=== PATIENT | male | born 1955 ===

== ENCOUNTER → 2017-02-25 | Outpatient (CLI) | payer OTHER ==
--- NOTE | 2017-02-25 12:49 | Diagnostic Imaging Report ---
Indication: Palpable wall thyroid nodules Technique: Grayscale and duplex images of the thyroid Comparison: None Findings: Right thyroid lobe measures 6.6 cm length x 2.5 cm AP. Left thyroid lobe measures 7.7 cm length x 2.9 cm AP. Both thyroid lobes demonstrate heterogeneity and multiple nodules. The largest nodule in the right lobe is located posteriorly and superiorly, measures 3.1 cm long axis dimension, mostly solid with a cystic component. The largest nodule on the left is solid, measuring 4.3 cm long axis dimension. Impression: Multiple bilateral thyroid nodules, as described. Largest on the right measures 3.1 cm, largest on the left measures 4.3 cm
== END | disposition home or self-care (01) ==
LOC: ULS 10:26
DX: E04.1 Nontoxic single thyroid nodule (principal)
CPT/HCPCS: 76536